=== PATIENT | female | born 1960 | race Caucasian/White ===

== ENCOUNTER 2018-08-13 02:57 | Emergency (ER) | payer BC ==
[~2018-08-13] VITALS: Ht 167.6 cm; Wt 82.0 kg
[2018-08-13 06:29] VITALS: BP 155/82
== END 2018-08-13 06:30 | disposition home or self-care (01) ==
LOC: ER 02:57
DX: M54.6 Pain in thoracic spine (principal); R51 Headache; Z88.0 Allergy status to penicillin
CPT/HCPCS: 99283